=== PATIENT | male | born 1990 | race Caucasian/White ===

== ENCOUNTER 2023-05-11 14:20 | Emergency (ER) | payer OTHER, SELFPAY ==
[2023-05-11 14:22] VITALS: BP 175/98; PULSE 102; RESP 18; TEMP 36.3; O2SAT 100
--- NOTE | 2023-05-11 16:48 | ED.DIZZY ---
HPI - Dizziness General Chief Complaint: Dizziness Stated Complaint: dizzy Time Seen by Provider: 05/11/23 16:01 History of Present Illness HPI Narrative: 33-year-old male present emerged department for evaluation of vertigo. Patient has a longstanding history of vertigo but has never had a history of follow-up for this. Patient states he does have increased plugged sensation in both ears. Patient denies any falls or injuries. Patient denies any nausea vomiting or diarrhea. Related Data Allergies Allergy/AdvReac Type Severity Reaction Status Date / Time Sulfa (Sulfonamide Allergy Unknown Verified 05/11/23 14:24 Antibiotics) Review of Systems Review of Systems: All systems reviewed & are unremarkable except as noted in HPI and below Exam Narrative: APPEARANCE: Well appearing, no pain, no distress, well-nourished. HEAD: normocephalic, atraumatic. EYES: PERRLA/EOMI, conjunctivae clear. NOSE: Normal no drainage EARS: Cerumen impaction in both ears THROAT: Pharynx clear, no exudate. NECK: Supple. No adenopathy, no masses. RESPIRATORY: Airway patent, respirations nonlabored. Clear to auscultation bilaterally, no rales, rhonchi, wheezing. CARDIOVASCULAR: Regular rate and rhythm without murmurs rubs or gallops. ABDOMINAL: Soft, nontender, nondistended, normal bowel sounds MUSCULOSKELETAL: Moves all extremities. Strength/ROM intact, No edema, No calf tenderness. NEURO: Alert. Cranial nerves II through XII intact. Grossly intact Course Course Emergency Course: 33-year-old male with history of vertigo. Patient has been treated with meclizine. Patient will have both ears irrigated. Patient did feel improved with irrigation and meclizine. Patient was encouraged of close follow-up with ENT. All question concerns were addressed. Patient was able to ambulate in the ED without issue. Vital Signs Vital signs: Vital Signs Temperature 97.3 F L 05/11/23 14:22 Pulse Rate 102 H 05/11/23 14:22 Respiratory Rate 18 05/11/23 14:22 Blood Pressure 175/98 H 05/11/23 14:22 Pulse Oximetry 100 05/11/23 14:22 Temperature 97.3 F L 05/11/23 14:22 Pulse Rate 90 05/11/23 18:19 Respiratory Rate 16 05/11/23 18:19 Blood Pressure 139/89 05/11/23 18:19 Pulse Oximetry 99 05/11/23 18:19 Discharge Plan Discharge Clinical Impression: Vertigo Patient Disposition: Home, Self-Care Condition: Stable Instructions: Antibiotic Form, Vertigo (ED) Additional Instructions: Meclizine as needed for vertigo control. Have close follow-up with otolaryngology. If you have any worsening symptoms then please call or return to the emergency department. Prescriptions: New meclizine 25 mg tablet 25 mg PO TID PRN (Reason: dizziness) Qty: 20 0RF Follow-up/Referrals: Rudy Burnham MD [Physician] - PHYSICIAN NOT ON STAFF,NONSTAFF [Primary Care Provider] -
[2023-05-11] MEDS: MECLIZINE HCL 25 MG TABLET PO (17:12)
[2023-05-11 18:19] VITALS: BP 139/89; PULSE 90; RESP 16; O2SAT 99
== END 2023-05-11 18:19 | disposition home or self-care (01) ==
PROVIDERS: Emergency Provider Emergency Medicine
DX: R42 Dizziness and giddiness (principal)
CPT/HCPCS: 99283; A9270